=== PATIENT | male | born 1965 | race African-American/Black ===

== ENCOUNTER 2017-10-29 11:50 | Emergency (ER) | payer MEDICARE, MEDICAID ==
[2017-10-29] MEDS ORDERED: Ketorolac Tromethamine 30 MG/ML VIAL ONE (14:14)
== END 2017-10-29 14:37 | disposition home or self-care (01) ==
LOC: ERS 11:50
DX: M79.602 Pain in left arm (principal); F17.210 Nicotine dependence, cigarettes, uncomplicated
CPT/HCPCS: 96372; J1885